=== PATIENT | female | born 1985 | race Hispanic/Latino ===

== ENCOUNTER 2020-04-17 15:51 | Emergency (ER) | payer OTHER ==
[2020-04-17] MEDS ORDERED: KETOROLAC TROMETHAMINE 60 MG/2 ML VIAL IM ONE (17:30)
[2020-04-17] MEDS ORDERED: CYCLOBENZAPRINE5 MG PO (17:59)
== END 2020-04-17 18:04 | disposition home or self-care (01) ==
LOC: ER 16:00
DX: S16.1XXA Strain of muscle, fascia and tendon at neck level, initial encounter (principal); S39.012A Strain of muscle, fascia and tendon of lower back, initial encounter; V43.52XA Car driver injured in collision with other type car in traffic accident, initial encounter; Y92.488 Other paved roadways as the place of occurrence of the external cause; K76.9 Liver disease, unspecified
CPT/HCPCS: 71045; 72050; 72070; 72110; 81025; 99283

== ENCOUNTER 2021-05-17 13:22 | Emergency (ER) | payer OTHER ==
[~2021-05-17] VITALS: Ht 162.6 cm; Wt 106.6 kg
[~2021-05-17 13:22] MED LIST: CYCLOBENZAPRINE5 MG PO
[2021-05-17] MEDS ORDERED: PREDNISONE50 MG PO (14:01)
[2021-05-17] MEDS ORDERED: ANAPROX DS550 MG PEG (14:01)
== END 2021-05-17 15:03 | disposition home or self-care (01) ==
LOC: ER 13:39
DX: M54.12 Radiculopathy, cervical region (principal); R20.0 Anesthesia of skin; K76.9 Liver disease, unspecified
CPT/HCPCS: 99282

== ENCOUNTER 2024-01-07 15:04 | Emergency (ER) | payer OTHER ==
[~2024-01-07] VITALS: Ht 160 cm; Wt 110.7 kg
[~2024-01-07 15:04] MED LIST changes: +ANAPROX DS550 MG PEG; +PREDNISONE50 MG PO; +URSODIOL300 MG PO
[2024-01-07 15:10] VITALS: PULSE 98; RESP 16; TEMP 97.4; O2SAT 100
[2024-01-07 20:16] LABS: HEMATOCRIT 44.8 % (34.2-44.1); HEMOGLOBIN 14.3 g/dL (12.0-16.0); MEAN CORPUSCULAR HEMOGLOBIN 29.6 pg (28-32); MEAN CORPUSCULAR HGB CONC 31.9 g/dL (31-35); MEAN CORPUSCULAR VOLUME 92.8 fL (81-99); NEUTROPHILS % 59.8 % (38.7-80.0); PLATELET COUNT 252 x10e3/uL (140-360); RED BLOOD COUNT 4.83 x10e6/uL (3.6-5.1); RED CELL DISTRIBUTION WIDTH 13.1 % (11.7-14.4); WHITE BLOOD COUNT 8.311 x10e3/uL (4.8-10.8)
[2024-01-07 20:17] LABS: BASOPHILS # (AUTO) 0.1 (0.0-0.1); BASOPHILS % 0.7 % (0.0-1.0); EOSINOPHILS # (AUTO) 0.7 (0.0-0.4); EOSINOPHILS % 7.9 % (0.0-6.0); LYMPHOCYTES # (AUTO) 2.2 (1.0-3.2); LYMPHOCYTES % 25.9 % (18.0-39.1); MONOCYTES # (AUTO) 0.4 (0.2-0.8); MONOCYTES % 5.3 % (4.4-11.3); SODIUM 138 mmol/L (136-145)
[2024-01-07 20:18] LABS: ALANINE AMINOTRANSFERASE 89 IU/L (0-55); ALBUMIN 3.5 g/dL (3.5-5.0); ALBUMIN/GLOBULIN RATIO 0.7 (0.8-2.0); ALKALINE PHOSPHATASE 290 IU/L (40-150); ANION GAP 13.8 mmol/L (8-16); BILIRUBIN,TOTAL 1.2 mg/dL (0.2-1.2); BLOOD UREA NITROGEN 14 mg/dL (7-26); BUN/CREATININE RATIO 17 (6-25); CALCIUM 9.4 mg/dL (8.4-10.2); CARBON DIOXIDE 22 mmol/L (22-29); CHLORIDE 106 mmol/L (98-107); CREATINE KINASE 24 IU/L (29-168); CREATININE, SERUM 0.83 mg/dL (0.57-1.11); EST GLOMERULAR FILTRATION RATE 91 ML/MIN (>=60); GLUCOSE 151 mg/dL (74-118); POTASSIUM 3.8 mmol/L (3.5-5.1); TOTAL PROTEIN 8.2 g/dL (6.5-8.1); TROPONIN I < 0.001 ng/mL (0-0.300)
== END 2024-01-07 17:15 | disposition home or self-care (01) ==
LOC: EDBD 15:04 → ER 17:11
DX: M94.0 Chondrocostal junction syndrome [Tietze] (principal); R53.83 Other fatigue
CPT/HCPCS: 36415; 71045; 80053; 82550; 84484; 84702; 85025; 85379; 93005; 99283

== ENCOUNTER 2024-01-17 23:46 | Emergency (ER) | payer OTHER ==
[~2024-01-17] VITALS: Ht 160 cm; Wt 110.2 kg
[2024-01-17 23:52] VITALS: PULSE 78; RESP 20; TEMP 98.7; O2SAT 100
== END 2024-01-18 01:05 | disposition home or self-care (01) ==
LOC: ER 23:51
DX: R51.9 Headache, unspecified (principal); R05.9 Cough, unspecified; J39.2 Other diseases of pharynx; Z77.028 Contact with and (suspected) exposure to other hazardous aromatic compounds; K76.9 Liver disease, unspecified
CPT/HCPCS: 71046; 99283